=== PATIENT | male | born 1945 | race Caucasian/White ===

== ENCOUNTER → 2018-09-06 13:29 | Outpatient (CLI) | payer MEDICARE, OTHER, SELFPAY ==
--- NOTE | 2018-09-06 | DI.ECHO.S_ITS ---
[facility] +---------+ : : [address] : : : : [id number] : : : : Phone: [phone] Echocardiogram Report + + :Name: PRISCILA GOETZ Study Date: 09/06/2018 Height: 72 in : :[facility] Exam Location: IS Weight: 180 lb : : Gender: Male BSA: 2.0 m2 : :: 1945 Age: 73 yrs BP: 150/80 mmHg: :Reason For Study: Dyspnea : : Performed By: Vikki Page : :Referring: JULIAN YARBROGUH : + + Interpretation Summary The ejection fraction is estimated to be 60-65%. There are no focal wall motion abnormalities. Both atria are moderately dilated. The right ventricle is mildly dilated. The right ventricular systolic function is normal. There is mild tricuspid regurgitation. The right ventricular systolic pressure is estimated to be at least 38 mmHg based on an estimated right atrial pressure of 8 mm Hg. Procedure: A two-dimensional transthoracic echocardiogram with color flow and Doppler was performed. The study quality was technically adequate. There is no prior echocardiogram noted for this patient. The heart rate ranged between 69-76 bpm during the study. Left Ventricle: The left ventricle is normal in size. There is normal left ventricular wall thickness. Proximal septal thickening is noted. The ejection fraction is estimated to be 60-65%. There are no focal wall motion abnormalities. Diastolic parameters suggest probable normal left ventricular diastolic function and normal filling pressures. Right Ventricle: The right ventricle is mildly dilated. The right ventricular systolic function is normal. Atria: Both atria are moderately dilated. There is no Doppler evidence for an interatrial shunt. Mitral Valve: The mitral valve is normal in structure and function. There is mild mitral annular calcification. There is trace mitral regurgitation. Aortic Valve: The aortic valve is trileaflet. The aortic valve opens well. There is trace aortic regurgitation. Tricuspid Valve: The tricuspid valve is normal in structure and function. There is mild tricuspid regurgitation. The right ventricular systolic pressure is estimated to be at least 38 mmHg based on an estimated right atrial pressure of 8 mm Hg. Pulmonic Valve: The pulmonic valve is not well visualized. There is a trace or physiologic amount of pulmonic regurgitation. Great Vessels: The aortic root is normal size. The ascending aorta is mildly enlarged. The pulmonary is not well visualized. The IVC is of normal diameter and collapses less than 50% with a sniff. This suggests a right atrial pressure of 8 mm Hg. Pericardium/ Pleura There is no pericardial effusion. There is no pleural effusion. MMode/2D Measurements & Calculations LVIDd: 4.5 cm LVOT diam: 2.2 cm LVIDs: 1.8 cm Ao root diam: 3.4 cm FS: 59.7 % asc Aorta Diam: 3.8 cm IVSd: 0.96 cm LVPWd: 0.88 cm LV jo. diameter/BSA (cm/m^2): 2.2 LV sys. diameter/BSA (cm/m^2): 0.89 LA A2 area: 23.8 cm2 RA long axis: 5.6 cm LA A4 area: 22.6 cm2 RA area: 23.1 cm2 LA length (vol): 5.4 cm RA vol: 80.9 ml LA vol: 84.5 ml RA : 39.7 ml/m2 LA vol index: 41.5 ml/m2 IVC diam: 2.1 cm RVD1 (basal): 4.7 cm TAPSE: 2.9 cm Doppler Measurements & Calculations Ao V2 max: 173.0 cm/sec LVOT Max Forrest: 119.1 cm/sec Ao V2 mean: 125.7 cm/sec LV V1 max P.7 mmHg Ao max P.0 mmHg LV V1 VTI: 22.0 cm Ao mean P.7 mmHg AGNES(I,D): 2.9 cm2 Ao V2 VTI: 29.3 cm AGNES(V,D): 2.7 cm2 sev ratio: 0.75 AGNES indexed to BSA (cm^2/m^2): 1.4 MV E max forrest: 48.2 cm/sec TR max forrest: 273.2 cm/sec MV A max forrest: 63.1 cm/sec TR max P.9 mmHg MV E/A: 0.76 PA V2 max: 85.4 cm/sec Med Peak E' Forrest: 6.5 cm/sec PA V2 mean: 64.2 cm/sec E/E' med: 7.4 PA mean P.8 mmHg Lat Peak E' Forrest: 7.5 cm/sec PA Accel Time: 0.06 sec E/E' lat: 6.4 E/e' average: 6.9 MV dec time: 0.27 sec MV P1/2t: 78.3 msec MV P1/2t max forrest: 47.4 cm/sec SV(LVOT): 85.2 ml MVA(P1/2t): 2.8 cm2 Reading Physician:03:24 PM
== END ==
PROVIDERS: PCP Student in an Organized Health Care Education/Training Program; Visit Provider Student in an Organized Health Care Education/Training Program
DX: I07.1 Rheumatic tricuspid insufficiency (principal); R06.00 Dyspnea, unspecified
CPT/HCPCS: 93306

== ENCOUNTER → 2019-05-23 16:33 | Outpatient (CLI) | payer MEDICARE, OTHER, SELFPAY ==
--- NOTE | 2019-05-23 17:01 | DI.RAD.S_ITS ---
PROCEDURE: XR KNEE RT 3V INDICATIONS: RIGHT KNEE PAIN TECHNIQUE: 3 views of the knee were acquired. COMPARISON: None. FINDINGS: Bones: No fractures or dislocations. No suspicious bony lesions. Scattered degenerative subchondral sclerosis and spurring. Mild joint space narrowing. Soft tissues: Moderate joint effusion. Chondrocalcinosis. Scattered vascular calcifications IMPRESSION: Mild right knee joint degeneration Moderate joint effusion Chondrocalcinosis Dictated by: Bubba Juarez M.D. on 05/24/2019 at 9:01 Approved by: Bubba Juarez M.D. on 05/24/2019 at 9:03
== END ==
PROVIDERS: PCP Student in an Organized Health Care Education/Training Program; Visit Provider Student in an Organized Health Care Education/Training Program
DX: M25.561 Pain in right knee (principal); M17.11 Unilateral primary osteoarthritis, right knee; M25.461 Effusion, right knee; M11.261 Other chondrocalcinosis, right knee
CPT/HCPCS: 73562

== ENCOUNTER 2024-04-13 12:57 | Emergency (ER) | payer MEDICARE, SELFPAY ==
[2024-04-13] VITALS (9 sets, daily range): BP systolic 149–194; BP diastolic 75–90; PULSE 64–78; RESP 17; TEMP 36.9; O2SAT 94–96; BMI 28.3
--- NOTE | 2024-04-13 13:15 | EKG_ITS ---
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
--- NOTE | 2024-04-13 13:15 | DI.RAD.S_ITS ---
PROCEDURE: XR CHEST 1V INDICATIONS: chest pain TECHNIQUE: One view of the chest was acquired. COMPARISON: None. FINDINGS: Surgical changes and devices: None. Lungs and pleura: Mild appearance of bibasilar interstitial coarsening. Mediastinum: Mediastinal contours appear normal. Heart size is normal. Bones and chest wall: No suspicious bony lesions. Overlying soft tissues appear unremarkable. IMPRESSION: Mild interstitial coarsening. This can be seen with dependent change such as edema. Dictated by: Joyce Connell M.D. on 04/13/2024 at 13:53 Approved by: Joyce Connell M.D. on 04/13/2024 at 13:56
[2024-04-13 13:37] LABS: Add Manual Diff / Slide Review NO; Basophils Absolute Auto 0 /uL (0-100); Basophils Percent Auto 0.4 % (0-2); Eosinophils Absolute Auto 100 /uL (0-450); Eosinophils Percent Auto 0.9 % (2-4); Hematocrit 48.4 % (41-53); Hemoglobin 16.7 g/dL (13.5-17.5); Lymphocytes Absolute Auto 1400 /uL (1100-4500); Lymphocytes Percent Auto 19.5 % (25-40); Mean Corpuscular HGB Conc 34.4 % (30-36); Mean Corpuscular Hemoglobin 31.6 PG (26-34); Mean Corpuscular Volume 91.6 fL (80-100); Monocytes Absolute Auto 1000 /uL (0-900); Monocytes Percent Auto 13.7 % (3-14); Neutrophils Absolute Auto 4700 /uL (1500-7000); Neutrophils Percent Auto 65.5 % (50-75); Platelet Count 230 X10^3/uL (150-400); Red Blood Cell Count 5.29 X10^6/uL (4.5-5.9); Red Cell Distribution Width 13.5 % (11.6-14.8); White Blood Cell Count 7.1 X10^3/uL (4.5-11.0)
[2024-04-13 13:41] LABS: Prothrombin Time 11.5 SECONDS (9.4-12.5)
[2024-04-13 13:44] LABS: PTT Partial Thromboplastin Tim 35 SECONDS (25.1-36.5)
[2024-04-13 13:48] LABS: Alanine Aminotransferase 44 IU/L (<50); Albumin 4.5 g/dL (3.5-5.0); Albumin Globulin Ratio 1.4 (1.0-2.8); Alkaline Phosphatase 77 U/L (38-126); Aspartate Aminotransferase 52 IU/L (17-59); BUN Creatinine Ratio 26.7 (6-22); Blood Urea Nitrogen 23 mg/dL (9-20); Calcium 9.5 mg/dL (8.4-10.2); Carbon Dioxide 28 mmol/L (22-32); Chloride 101 mmol/L (98-107); Creatine Kinase 345 U/L (55-170); Estimated Glomerular Filt Rate > 60 mL/min (>60); Globulin 3.2 g/dL (1.7-4.1); Glucose 97 mg/dL (80-110); HEMOLYSIS 27 (0-50); Lipase 60 U/L (23-300); Magnesium 1.7 mg/dL (1.6-2.3); Potassium 3.7 mmol/L (3.4-5.1); Sodium 136 mmol/L (137-145); Total Protein 7.7 g/dL (6.3-8.2)
[2024-04-13 14:00] LABS: NT-proBNP (BNP-Adult 18+) 57 pg/mL (<450); Troponin I < 0.012 ng/mL (0.01-0.034)
--- NOTE | 2024-04-13 16:08 | ED_ITS ---
HPI - General Adult General Chief complaint: Hypertension Stated complaint: [facility]; Off-Balance, Head doesn't feel right Time Seen by Provider: 04/13/24 16:08 Source: patient Mode of arrival: Ambulatory History of Present Illness HPI narrative: 78-year-old male complains of unsteadiness and shakiness, some degree of unsteadiness for multiple years, no known previous stroke, no known parkinsonism or neurological problem diagnosed, feels somewhat shaky since yesterday, has been eating less trying to lose weight. No history of diabetes. No change in medications. He has no complaint of numbness or weakness to his face arm or leg. He has no trouble swallowing. No visual changes. He denies any recent illness symptoms. Specifically denies fevers, chills, shortness of breath, chest discomfort, frequency of urination, painful urination, diarrhea, black stools, red stools, rashes. Related Data Home Medications Medication Instructions Recorded Confirmed hydrochlorothiazide 12.5 mg capsule 12.5 mg PO BID ##0 01/31/12 04/13/24 lisinopril 20 mg tablet 15 mg PO BID ##0 01/31/12 04/13/24 Allergies Allergy/AdvReac Type Severity Reaction Status Date / Time No Known Drug Allergies Allergy Verified 04/13/24 13:08 Review of Systems Review of Systems Narrative: See HPI Patient History Social History Smoking Status: Never smoker Smoking Status: Never smoker Substance Use Type: does not use Exam Narrative Exam Narrative: GENERAL: Well-developed patient, in mild distress. HEAD: Atraumatic. Normocephalic. EYES: Pupils equal round and reactive. Extraocular motions intact. No scleral icterus. No injection or drainage. ENT: Nose without bleeding, purulent drainage. Throat without erythema, tonsillar hypertrophy or exudate. Airway patent. NECK: Trachea midline. Non tender CARDIOVASCULAR: Regular rate and rhythm without murmurs, gallops, or rubs. RESPIRATORY: Clear to auscultation. Breath sounds equal bilaterally. No wheezes, rales, or rhonchi. GASTROINTESTINAL: Abdomen soft, non-tender, nondistended. EXTREMITIES: No edema or joint tenderness. BACK: Nontender without deformity or crepitance. No flank tenderness. NEURO: AOx3. Cranial nerves exam normal. Motor 5/5 upper and lower extremities. Ojilml-qj-vtco testing normal. Normal speech and content. He has not appear to have any tremor. He was able to walk around the department per nursing normally to the bathroom from [facility] and back. SKIN: No rash or erythema of visible areas Initial Vital Signs Initial Vital Signs: Vital Signs Temperature 98.4 F 04/13/24 13:10 Pulse Rate 76 04/13/24 13:10 Respiratory Rate 17 04/13/24 13:10 Blood Pressure 184/83 H 04/13/24 13:10 Pulse Oximetry 95 04/13/24 13:10 Oxygen Delivery Method Room Air 04/13/24 13:10 Course Orders Ordered: ED Orders 04/13/24 13:15 XR chest 1V Stat EKG-12 Lead Stat 04/13/24 13:22 Complete Blood Count AUTO DIFF Stat Comprehensive Metabolic Panel Stat Lipase Stat Magnesium Stat NT-proBNP (BNP-Adult 18+) Stat PTT Partial Thromboplastin Dustin Stat Prothrombin Time INR Stat Troponin & CK Cardiac Panel Stat 04/13/24 16:08 CT head/brain wo con Stat 04/13/24 16:09 CT angio head and neck Stat Vital Signs Vital signs: Vital Signs - 8 hr 04/13/24 15:34 04/13/24 15:34 04/13/24 16:00 Pulse Rate 69 64 Blood Pressure 194/90 H Pulse Oximetry 96 96 Oxygen Delivery Method Room Air 04/13/24 16:00 04/13/24 16:30 04/13/24 16:31 Pulse Rate 71 Blood Pressure 167/79 H 149/78 H Pulse Oximetry 95 Oxygen Delivery Method 04/13/24 16:31 04/13/24 17:00 04/13/24 17:14 Pulse Rate 73 78 75 Blood Pressure Pulse Oximetry 94 96 96 Oxygen Delivery Method Room Air 04/13/24 17:14 04/13/24 17:30 04/13/24 17:31 Pulse Rate 75 Blood Pressure 182/86 H 166/75 H Pulse Oximetry 95 Oxygen Delivery Method 04/13/24 17:31 Pulse Rate 73 Blood Pressure Pulse Oximetry 95 Oxygen Delivery Method Medical Decision Making Lab Data Lab results reviewed: Yes I reviewed the patient's lab results. Lab results narrative: White blood cell count 7100, hemoglobin 16.7, platelets adequate. CMP unremarkable. Glucose 97. Liver functions were unremarkable, troponin negative, BNP not elevated 04/13/24 13:22 04/13/24 13:22 Labs: Lab Results 04/13/24 Range/Units 13:22 WBC 7.1 (4.5-11.0) X10^3/uL RBC 5.29 (4.5-5.9) X10^6/uL Hgb 16.7 (13.5-17.5) g/dL Hct 48.4 (41-53) % MCV 91.6 (80-100) fL MCH 31.6 (26-34) PG MCHC 34.4 (30-36) % RDW 13.5 (11.6-14.8) % Plt Count 230 (150-400) X10^3/uL Neut % (Auto) 65.5 (50-75) % Lymph % (Auto) 19.5 L (25-40) % [place] % (Auto) 13.7 (3-14) % Eos % (Auto) 0.9 L (2-4) % Baso % (Auto) 0.4 (0-2) % Neut # (Auto) 4700 (7458-2346) /uL Lymph # (Auto) 1400 (0554-6010) /uL [place] # (Auto) 1000 H (0-900) /uL Eos # (Auto) 100 (0-450) /uL Baso # (Auto) 0 (0-100) /uL PT 11.5 (9.4-12.5) SECONDS INR 1.0 (0.9-1.3) APTT 35 (25.1-36.5) SECONDS Sodium 136 L (137-145) mmol/L Potassium 3.7 (3.4-5.1) mmol/L Chloride 101 (98-107) mmol/L Carbon Dioxide 28 (22-32) mmol/L BUN 23 H (9-20) mg/dL Creatinine 0.86 (0.66-1.25) mg/dL Estimated GFR > 60 (>60) mL/min BUN/Creatinine Ratio 26.7 H (6-22) Glucose 97 (80-110) mg/dL Calcium 9.5 (8.4-10.2) mg/dL Magnesium 1.7 (1.6-2.3) mg/dL Total Bilirubin 1.0 (0.2-1.3) mg/dL AST 52 (17-59) IU/L ALT 44 (<50) IU/L Alkaline Phosphatase 77 (38-126) U/L Total Creatine Kinase 345 H (55-170) U/L Troponin I < 0.012 (0.01-0.034) ng/mL NT-Pro-B Natriuret Pep 57 (<450) pg/mL Total Protein 7.7 (6.3-8.2) g/dL Albumin 4.5 (3.5-5.0) g/dL Globulin 3.2 (1.7-4.1) g/dL Albumin/Globulin Ratio 1.4 (1.0-2.8) Lipase 60 (23-300) U/L Imaging Data Chest x-ray: Radiologist's Impression: [address] [address] XRay Report Signed Patient: Aman Anne MR#: [id number] : 1945 Acct:[id number] Age/Sex: 78 / M Date of Service: 04/13/24 Loc: ED Accession Number: [id number] Procedure: XR chest 1V Ordering Provider: Phil Navarrete MD PROCEDURE: XR CHEST 1V INDICATIONS: chest pain TECHNIQUE: One view of the chest was acquired. COMPARISON: None. FINDINGS: Surgical changes and devices: None. Lungs and pleura: Mild appearance of bibasilar interstitial coarsening. Mediastinum: Mediastinal contours appear normal. Heart size is normal. Bones and chest wall: No suspicious bony lesions. Overlying soft tissues appear unremarkable. IMPRESSION: Mild interstitial coarsening. This can be seen with dependent change such as edema. Dictated by: Joyce Connell M.D. on 04/13/2024 at 13:53 Approved by: Joyce Connell M.D. on 04/13/2024 at 13:56 CT scan - head: Radiologist's Impression: [address] [address] [address] Scan Report Signed Patient: Aman Anne MR#: [id number] : 1945 Acct:[id number] Age/Sex: 78 / M Date of Service: 04/13/24 Loc: ED Accession Number: [id number] Procedure: CT head/brain wo con Ordering Provider: Phil Navarrete MD PROCEDURE: CT HEAD/BRAIN WO CON INDICATIONS: unsteady TECHNIQUE: Noncontrast 4.5 mm thick angled axial sections acquired from the foramen magnum to the vertex, with coronal and sagittal reformats. For radiation dose reduction, the following was used: automated exposure control, adjustment of mA and/or kV according to patient size. COMPARISON: None. FINDINGS: Image quality: Diagnostic. CSF spaces: Basal cisterns are patent. No extra-axial fluid collections. The ventricles are symmetric in size and shape. Brain: No intracranial bleeds or masses. There is cerebral volume loss for age, with resultant ventricular and sulcal prominence. There are periventricular and deep white matter chronic small vessel ischemic changes. There is intracranial internal carotid artery atherosclerosis. Skull and face: Calvarium and visualized facial bones appear intact, without suspicious lesions. Sinuses: Visualized sinuses and mastoids are clear. IMPRESSION: No acute intracranial pathology. Dictated by: Jun Hoyt M.D. on 04/13/2024 at 16:59 Approved by: Jun Hoyt M.D. on 04/13/2024 at 16:59 CTA - brain/neck: Radiologist's Impression: [place] [address] CT Scan Report Signed Patient: Aman Anne MR#: [id number] : 1945 Acct:[id number] Age/Sex: 78 / M Date of Service: 04/13/24 Loc: Accession Number: [id number] Procedure: CT angio head and neck Ordering Provider: Phil Navarrete MD PROCEDURE: CT ANGIO HEAD AND NECK INDICATIONS: unsteady TECHNIQUE: After the administration of intravenous contrast, 1 mm thick sections acquired from the aortic arch through the [place] of [place]. 3-dimensional hgardyb-rgfpmmjvw-tbrynsnddk (MIP) and/or volume rendering reformats were acquired of the central intracranial vasculature and neck separately. For radiation dose reduction, the following was used: automated exposure control, adjustment of mA and/or kV according to patient size. COMPARISON: [facility], CT, CT HEAD/BRAIN WO CON, 04/13/2024, 16:43. (Additional prior imaging is not available for review from the archive at the time of this dictation.) FINDINGS: Image quality: Limited by bolus timing, with venous contamination. BRAIN: CSF spaces: Ventricles are normal in size and shape. Basal cisterns are patent. No extra-axial fluid collections. Brain: No significant abnormality of the brain can be seen. Skull and face: Calvarium and facial bones appear intact, without suspicious lesions. Orbits appear normal. Sinuses: Sinuses and mastoids are clear. HEAD CT ANGIOGRAPHY: Anterior circulation: Intracranial internal carotid arteries demonstrate dense calcification and irregularity, with up to 50% narrowing on each side. The flow within the paired anterior cerebral arteries is normal and symmetric. The flow within the middle cerebral arteries is normal and symmetric. The anterior communicating artery is seen. No aneurysms are seen. Posterior circulation: Dense calcification can be seen involving the 4 segments, with up to 60% narrowing on each side. The V4 segments join to form a normal appearing basilar artery. There is a prominent left posterior communicating artery seen, with an accompanying diminutive left P1 segment. This is attributed to a type origin of the right posterior cerebral artery, which is considered to be a normal developmental variant of typically no clinical consequence. The flow within the posterior cerebral arteries is normal and symmetric. No aneurysms are seen. NECK CT ANGIOGRAPHY: Carotid system: The great vessels demonstrate a conventional anatomy as they arise from the aortic arch. The origins of the common carotid arteries appear patent. The common carotid arteries demonstrate normal caliber and courses. The bifurcation regions demonstrate dense atherosclerotic irregularity and calcification. No hemodynamically significant stenosis is seen. The more distal internal carotid arteries demonstrate normal course and caliber. Posterior circulation: The origins of the vertebral arteries both appear widely patent. The more superior extracranial portions of both vertebral arteries also demonstrate normal courses and calibers. They join to form a normal appearing basilar artery. Soft tissues: Visualized neck soft tissues demonstrate no suspicious abnormalities. There is a 3 cm left thyroid nodule seen. Bones: No suspicious bony lesions. Visualized cervical spine appears normally aligned. There is at least moderate cervical spine degenerative change. IMPRESSION: Dense calcification with irregularity can be seen involving the intracranial internal carotid arteries and the V4 segments. No rehana acute intracranial stenosis or occlusion is seen. If there is strong clinical suspicion for an acute stroke, please consider a brain MRI for further evaluation, as it is more sensitive (assuming that there is no contraindication to MRI). No significant abnormality is seen within the arteries of the neck. 3 cm left thyroid nodule seen. If not already worked up, please consider a dedicated follow-up thyroid ultrasound for further evaluation. Any quantitative measurements of stenosis were performed using NASCET criteria. Dictated by: Sukhdeep Hopper M.D. on 04/13/2024 at 16:10 Approved by: Sukhdeep Hopper M.D. on 04/13/2024 at 16:14 ECG Data Attestation: I personally reviewed and interpreted this ECG as follows: Interpretation: Normal sinus rhythm with rate of 70, no obvious ST segment elevation or depression changes. Right bundle branch block present however. NM 178, QRS 152, QTC 457. MDM Narrative Medical decision making narrative: 78-year-old male with unsteadiness and shakiness, triage concern for possible stroke, stroke evaluation related orders initiated, however patient has predominance of shakiness symptoms in context of diet change trying to lose weight, has not been eating that much lately, unsteady this apparently has been present for a number of years and not changed. He denies sensation of listing to 1 side or the other, denies recent falls. He denies numbness or weakness to face arm or leg. He denies fevers and chills. Afebrile, sirs screen negative. Unremarkable exam including ability to ambulate to the bathroom without difficulty. CT head and CTA studies from triage initiated. EKG and labs pending. EKG unremarkable, troponin negative. CBC, CMP unremarkable, electrolytes unremarkable, glucose normal CT head noncontrast study negative, see radiology report. CT angiogram head and neck showed no thromboses or significant narrowing, did show incidental thyroid nodule, patient was informed about this incidental finding. See radiology report. 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 No MRI study available at this time, could be done as an outpatient. Patient agreed. Further evaluation as an outpatient for now. Follow up with PCP early next week advised. Return precautions. Stable for discharge Discharge Plan Departure Patient Disposition: Home Clinical Impression: Shakiness, Thyroid nodule Activity Restrictions/Additional Instructions: Shakiness with some unsteadiness noted, however on further query your unsteadiness has been stable for quite a number of years, shakiness seems more recent, no history of parkinsonism or other neurological disorder, you had been eating less intending to try to lose some weight. Labs screening unremarkable including your glucose levels, no electrolyte disturbance, no obvious evidence for heart attack, normal renal function noted, normal liver function noted. EKG showed a normal heart rhythm. CT head study showed no acute changes. CT angiogram study of the head in the neck vessels showed incidental 3 cm thyroid nodule that would need further follow up as an outpatient, describe some kind of carotid artery irregularity of unclear significance, but there was no mention of any blockage, no occlusion, no significant narrowing or thrombosis clot like changes. You were noted to be able to walk well in the emergency department. Unclear cause of your recent shakiness symptoms. Unclear if that might be diet related with your attempts to lose weight and perhaps eating less. Although your measurable glucose level was in the normal range. Further workup with your regular doctor as an outpatient for now. Contact your doctor early next week. Return to this/nearest emergency department for any change worsening symptoms or any concerns prior Prescriptions: No Action lisinopril 20 MG tablet 15 mg PO BID Qty: 0 hydrochlorothiazide 12.5 MG capsule 12.5 mg PO BID Qty: 0 Referrals: Yancy Barrios PA-C [Primary Care Provider] - Stand Alone Forms: Patient Portal/API
== END 2024-04-13 17:54 | disposition home or self-care (01) ==
PROVIDERS: Emergency Provider Emergency Medicine; PCP Student in an Organized Health Care Education/Training Program
DX: R25.1 Tremor, unspecified (principal); E04.1 Nontoxic single thyroid nodule; R07.9 Chest pain, unspecified; I45.10 Unspecified right bundle-branch block
CPT/HCPCS: 70450; 70496; 70498; 71045; 80053; 82550; 83690; 83735; 83880; 84484; 85025; 85610; 85730; 93005; 93010; 99284

== ENCOUNTER → 2024-08-11 11:25 | Outpatient (CLI) | payer MEDICARE, SELFPAY | PROVIDERS: PCP Student in an Organized Health Care Education/Training Program; Referring Provider Nurse Practitioner Family; Visit Provider Nurse Practitioner Family | DX: S31.20XA Unspecified open wound of penis, initial encounter (principal); N48.9 Disorder of penis, unspecified | CPT/HCPCS: 36415; 86695; 86696; 87070; 87075; 87205 ==